=== PATIENT | female | born 1980 | race African-American/Black ===

== ENCOUNTER 2024-10-03 23:19 | Emergency (ER) | payer OTHER ==
[~2024-10-03] VITALS: Ht 172.7 cm; Wt 64.0 kg
[~2024-10-03 23:19] MED LIST: FERR325T23 PO; IBUP-779 PO; MULT-1116 PO
[2024-10-03 23:23] VITALS: O2SAT 98
[2024-10-04 01:33] LABS: HEMATOCRIT. 27.8 % (36.0-48.0); HEMOGLOBIN. 8.1 g/dL (12.0-16.0); MEAN CORPUSCULAR HEMOGLOBIN 19.7 pg (28.0-32.0); MEAN CORPUSCULAR VOLUME 67.9 fL (81.0-99.0); MEAN PLATELET VOLUME 7.7 fl (7.4-10.4); PLATELET 522 x1000/uL (130-400); RED BLOOD CELL COUNT 4.09 mill/uL (4.2-5.4); RED CELL DISTRIBUTION WIDTH 26.9 % (11.6-14.6)
[2024-10-04 01:37] LABS: DIFFERENTIAL COMMENT 1
[2024-10-04 01:38] LABS: CHLORIDE 109 mEq/L (98-107); POTASSIUM 3.8 mEq/L (3.5-5.1); SODIUM 145 mEq/L (136-145)
[2024-10-04 01:39] LABS: CALCIUM 9.3 mg/dL (8.7-10.4); CARBON DIOXIDE 25 mEq/L (21-32)
[2024-10-04 01:44] LABS: CREATININE 0.7 mg/dL (0.6-1.0); GLUCOSE 94 mg/dL (70-105); UREA NITROGEN BLOOD 5 mg/dL (9-23)
[2024-10-04 02:34] VITALS: TEMP 36.7
[2024-10-04 02:34] LABS: HCG SCREEN NEGATIVE
[2024-10-04] MEDS: KETOROLAC 15MG/ML VIAL IV NR (03:32)
[2024-10-04 10:47] LABS: ANISOCYTOSIS 3+; HYPOCHROMASIA 2+; MICROCYTOSIS 2+; PLATELET ESTIMATE INCREASED
[2024-10-04 11:15] VITALS: BP 112/62; PULSE 76; RESP 18; O2SAT 100
== END 2024-10-04 11:40 | disposition home or self-care (01) ==
LOC: ER 23:19
DX: D64.9 Anemia, unspecified (principal); I10 Essential (primary) hypertension; Z79.1 Long term (current) use of non-steroidal anti-inflammatories (NSAID)
CPT/HCPCS: 99291; 96374; 80048; 84703; 85025; 36415; 93005; J1885